=== PATIENT | female | born 2000 | race Two or more races ===

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

== ENCOUNTER 2018-03-27 16:20 | Emergency (ER) | payer SELFPAY ==
[~2018-03-27] VITALS: Ht 165.1 cm; Wt 72.6 kg
[~2018-03-27 16:20] MED LIST changes: +NITROFURANTOIN100 M2 ORAL; +ZOFRAN ODT8 MG ORAL
--- NOTE | 2018-03-27 16:50 | NUR ---
ED Nurse Note: pt came to ED c/o h nausea and body aches for a few days. states not feeling well. a/ox4,
--- NOTE | 2018-03-27 17:06 | Emergency Room Report ---
History of Present Illness General Chief Complaint: Flu Like Symptoms Source: Patient Present Illness HPI 17-year-old female patient presents the ER complaining of blurred vision and nausea status post taking 3 tabs of ecstasy 2 days ago. Reports has been feeling "crappy" since the day after taking the pills. Denies headache. Denies vomiting or vision changes. Complains of nausea. Denies history of CHF or diabetes. Denies dysuria, hematuria, abdominal pain. Denies other aggravating or relieving factors. Denies vertigo. Denies syncope. Denies vision loss. Denies eye crusting. Denies chest pain, SOB, abdominal pain. Allergies: Coded Allergies: No Known Allergies (Unverified , 09/17/13) Patient History Past Medical History: see triage record Last Menstrual Period: 12-25 Now: No Reviewed Nursing Documentation: PMH: Agreed; PSxH: Agreed Nursing Documentation-PMH Past Medical History: No Stated History Review of Systems All Other Systems: negative except mentioned in HPI Physical Exam Vital Signs Date Time Temp Pulse Resp B/P (MAP) Pulse Ox O2 Delivery O2 Flow Rate FiO2 03/27/18 16:43 98.4 90 18 121/80 96 Room Air Sp02 EP Interpretation: reviewed, normal General Appearance: well appearing, no apparent distress, alert, GCS 15, non- toxic Head: normocephalic, atraumatic Eyes: bilateral eye normal inspection, bilateral eye PERRL ENT: hearing grossly normal, normal pharynx, no angioedema, normal voice, TMs + canals normal, uvula midline, moist mucus membranes Neck: full range of motion, no meningismus Respiratory: lungs clear, normal breath sounds, no rhonchi, no respiratory distress, no accessory muscle use, no wheezing, speaking full sentences Cardiovascular #1: regular rate, rhythm, no edema Gastrointestinal: non tender, soft, no mass, non-distended, no guarding, no rebound Musculoskeletal: back normal, digits/nails normal, gait/station normal, normal range of motion, non-tender Neurologic: alert, oriented x3, responsive, environmental journalist III-XII nml as tested, motor strength/tone normal, SLR negative, sensory intact, cerebellar normal, normal gait, speech normal Psychiatric: mood/affect normal Skin: no rash Medical Decision Making PA Attestation Dr. Daniels is my supervising Physician whom patient management has been discussed with. Diagnostic Impression: Primary Impression: Symptom of drug withdrawal Additional Impression: Nausea ER Course Pt. presents to the ED c/o nausea and blurry vision s/p taking 3 pills of ecstasy two days ago. Ddx considered but are not limited to withdrawals, gastritis, overdose, , food poisoning, viral syndrome. Vital signs: are WNL, pt. is afebrile, no tachycardia. ER COURSE: Provided patient with zofran. Physical exam benign. No focal neuro deficits, cranial nerves intact as tested , does not require CT head at this time. Lungs clear to auscultation, no wheezes rhonchi or rales. Cap refill less than 2 seconds, moist mucous membranes, normal skin turgor, no signs of dehydration. Patient able tolerate p.o. fluids, no tachycardic does not require IV hydration at this time. Urine negative. Patient reports mild improvement of symptoms. Will provide patient with prescription for Zofran and Tylenol, advised patient on rest. Drink plenty fluids. Do not use drugs. DISCHARGE: At this time pt is stable for d/c to home. Patient is resting comfortably, in no acute distress, nontoxic appearing, talking without difficulty. Patient to take medications as instructed Will provide with patient care instructions and any necessary prescriptions. Care plan and follow-up instructions provided. Patient instructed to follow-up with primary care provider in 3 - 5 days. Patient questions asked and answered. Patient reports understanding and agreement to treatment plan. ER precautions given. Patient instructed to return to ER immediately for any new or worsening of symptoms including but not limited to increasing SOB, persistent fever, chest pain, intractable vomiting. - Please note that this Emergency Department Report was dictated using [employer] style technology software, occasionally this can lead to erroneous entry secondary to interpretation by the dictation equipment. Last Vital Signs Date Time Temp Pulse Resp B/P (MAP) Pulse Ox O2 Delivery O2 Flow Rate FiO2 03/27/18 16:43 98.4 90 18 121/80 96 Room Air Status: improved Disposition: HOME, SELF-CARE Condition: Stable Scripts Acetaminophen* (TYLENOL EXTRA STRENGTH*) 500 Mg Tablet 500 MG ORAL Q8H PRN for Prn Headache/Temp > 101, #30 TAB 0 Refills Prov: Dann Vuong 03/27/18 Ondansetron* (ZOFRAN*) 4 Mg Tablet 4 MG ORAL Q6H PRN for Nausea & Vomiting, #10 TAB Prov: Dann Vuong 03/27/18 Patient Instructions: Nausea, Adult, [id number] Additional Instructions: Followup with primary care provider in 3 -5 days. Drink plenty of fluids. Take medications as directed. Patient questions asked and answered. ER precautions given, patient instructed to return to ER immediately for any new or worsening of symptoms. Dann Vuogn Mar 27, 2018 17:06
[2018-03-27] MEDS: Acetaminophen 500mg (ES) tab ORAL ONE ×2 (17:22→18:52)
--- NOTE | 2018-03-27 17:54 | NUR ---
ED Nurse Note: wasted the initial tylenol/zofran because patient could not swallow it due to gag-reflex,
[2018-03-27 17:55] VITALS: BP 121/80
[2018-03-27] MEDS ORDERED: ZOFRAN4 M3 ORAL (18:12)
[2018-03-27] MEDS ORDERED: TYLENOL EXTRA500 MG ORAL (18:47)
[2018-03-27] MEDS ORDERED: Acetaminophen 500mg (ES) tab ORAL ONE (18:51)
--- NOTE | 2018-03-27 19:04 | NUR ---
ED Nurse Note: patient is being discharged from medical care. Patient awak, alerted x 4. Ambulatory. D/C instruction and prescriptions given. All questions were answered.
== END 2018-03-27 18:50 | disposition home or self-care (01) ==
LOC: EMR 16:55
DX: F19.939 Other psychoactive substance use, unspecified with withdrawal, unspecified (principal); R11.0 Nausea; H53.8 Other visual disturbances
CPT/HCPCS: 81025; 99283